=== PATIENT | female | born 2000 | race Hispanic/Latino ===

== ENCOUNTER 2023-05-27 23:45 | Emergency (ER) | payer BC, MEDICAID ==
[~2023-05-27] VITALS: Ht 170.2 cm; Wt 115.2 kg
[2023-05-28 00:46] VITALS: BP 155/87; PULSE 80; RESP 18; O2SAT 100
[2023-05-28] MEDS ORDERED: SULFAMETHOX-TMP DS 800/160 TAB PO SCH (01:00)
[2023-05-28] MEDS ORDERED: CHLO120L TP (01:01)
[2023-05-28] MEDS ORDERED: MUPI22OI2 TP (01:01)
[2023-05-28] MEDS ORDERED: SULF1TAB42 PO ×2 (01:01→02:13)
[2023-05-28] MEDS ORDERED: CEPH500B PO (02:13)
== END 2023-05-28 01:19 | disposition home or self-care (01) ==
LOC: EDH 23:45
DX: L02.425 Furuncle of right lower limb (principal); L02.436 Carbuncle of left lower limb; L81.9 Disorder of pigmentation, unspecified

== ENCOUNTER 2023-10-22 14:00 | Emergency (ER) | payer BC ==
[~2023-10-22 14:00] MED LIST: CEPH500B PO; CHLO120L TP; MUPI22OI2 TP; SULF1TAB42 PO
== END 2023-10-22 16:04 | disposition left against medical advice (07) ==
LOC: EDH 14:00
DX: R19.7 Diarrhea, unspecified (principal); Z53.21 Procedure and treatment not carried out due to patient leaving prior to being seen by health care provider

== ENCOUNTER 2024-05-23 16:05 | Emergency (ER) | payer BC ==
[~2024-05-23] VITALS: Ht 170.2 cm; Wt 129.3 kg
[2024-05-23 16:47] LABS: BASOPHILS # (AUTO) 0.02 K/uL (0.00-0.20); BASOPHILS % (AUTO) 0.1 % (0.0-5.0); HEMATOCRIT 37.8 % (36-48); IMMATURE GRANULOCYTE ABSOLUTE 0.07 K/uL (0-1); LYMPHOCYTES % (AUTO) 6.8 % (21.0-51.0); MEAN CORPUSCULAR HGB CONC 33.9 g/dL (32.0-36.0); MEAN CORPUSCULAR VOLUME 85.5 fL (79-99); MONOCYTES # (AUTO) 0.6 K/uL (0.1-1.0); MONOCYTES % (AUTO) 4.4 % (3.0-13.0); NEUTROPHILS # (AUTO) 12.6 K/uL (1.8-7.7); NEUTROPHILS % (AUTO) 88.2 % (40.0-77.0); PLATELET COUNT (AUTO) 231 K/uL (130-400); RED BLOOD CELL COUNT(AUTO) 4.42 MIL/uL (4.00-5.50); RED CELL DISTRIBUTION WIDTH 12.5 % (11.0-15.5); WHITE BLOOD COUNT (AUTO) 14.3 K/uL (4.8-10.8)
[2024-05-23 17:03] LABS: COVID19 (SARS ANTIGEN RAPID) PRESUMPTIVE NEGATIVE (NEGATIVE); INFLUENZA TYPE A Negative For Type A (NEGATIVE); INFLUENZA TYPE B Negative For Type B (NEGATIVE)
[2024-05-23] MEDS: ondanSETRON 4MG INJ ONE (17:05)
[2024-05-23] MEDS: ondanSETRON 4MG INJ IVP ONE (17:06)
[2024-05-23 17:07] LABS: POTASSIUM 3.3 mmol/L (3.5-5.1)
[2024-05-23] MEDS: acetaMINOPHEN 650 MG/20.3 ML UDCUP PO ONE (17:09)
[2024-05-23] MEDS: acetaMINOPHEN 650 MG/20.3 ML UDCUP ONE (17:09)
[2024-05-23] MEDS: 0.9%NACL 1000ML 1,848 ML IV ONE (17:14)
[2024-05-23] MEDS: ketOROlac 30MG VIAL (30MG/ML) IVP ONE (17:53)
[2024-05-23 18:07] LABS: ALBUMIN 3.3 g/dL (3.5-5.0); BILIRUBIN,DIRECT 0.2 mg/dL (0.0-0.3); BILIRUBIN,TOTAL 0.9 mg/dL (0.2-1.0); TOTAL PROTEIN, SERUM 7.4 g/dL (6.0-8.3)
[2024-05-23 19:06] VITALS: BP 124/78; PULSE 92; RESP 18; TEMP 99.4; O2SAT 98
[2024-05-23 19:50] LABS: APPEARANCE,URINE TURBID (CLEAR); BILIRUBIN,URINE NEGATIVE (NEGATIVE); COLOR,URINE ORANGE (YELLOW); GLUCOSE, URINE (UA) NEGATIVE (NEGATIVE); KETONES,URINE NEGATIVE (NEGATIVE); LEUKOCYTE ESTERASE ,URINE NEGATIVE Leu/uL (NEGATIVE); NITRATE,URINE NEGATIVE (NEGATIVE); OCCULT BLOOD,URINE SMALL (NEGATIVE); PH,URINE 5.5 (5.0-8.0); PROTEIN,URINE 50 mg/dL (NEGATIVE); UROBILINOGEN,URINE 0.2 mg/dL (0.2-1.0)
[2024-05-23 19:52] LABS: ADD UA MICROSCOPIC YES
[2024-05-23 19:54] LABS: BACTERIA,URINE RARE /HPF (None Seen); MUCUS,URINE RARE LPF (None Seen); OTHER CASTS, URINE 19 /LPF (None Seen); SQUAMOUS EPITHELIAL CELL,UR FEW /HPF (0-2); UNCLASSIFIED CRYSTAL 52 /HPF (None Seen); WBC,URINE 26-50 /HPF (0-1); YEAST,URINE BUDDING MOD /HPF (None Seen)
[2024-05-23] MEDS ORDERED: ONDA-243 PO (19:57)
== END 2024-05-23 20:17 | disposition home or self-care (01) ==
LOC: EDH 16:05
DX: K52.9 Noninfective gastroenteritis and colitis, unspecified (principal); E86.0 Dehydration; Z79.899 Other long term (current) drug therapy; Z20.822 Contact with and (suspected) exposure to COVID-19
CPT/HCPCS: 99284; 96374; 96361; 96375; 87426; 82550; 80076; 84484; 80048; 83690; 85025; 87040; 87046; 87086; 87804 ×2; 83605; 81001; 36415; J2405; J1885